=== PATIENT | female | born 1955 | race Caucasian/White ===

== ENCOUNTER → 2021-04-18 | Outpatient (CLI) | payer MEDICARE, OTHER ==
[~2021-04-18] MED LIST: ANORO ELLIPTA1 EACH INH; ASPIRIN CHEWABL81 MG PO; BACLOFEN10 MG PO; CALCIUM 600 +1 EA10 PO; CALCIUM 600 +1 EAC2 PO; CLARITIN10 MG PO; CYCLOBENZAPRINE10 MG PO; ECOTRIN81 MG PO; FENOFIBRATE160 MG PO; FISH OIL 1,0001 EACH PO; FLUOXETINE HCL60 MG PO; FOLIC ACID 1 MG1 MG PO; GLUCOTROL 10 MG10 MG PO; GLUCOTROL5 MG PO; HYDROXYZINE PA100 MG PO; JANUVIA100 MG PO; LIPITOR TAB 2020 MG PO; LORTAB 7.5-3251 EACH PO; METOPROLOL SUCC25 MG PO; MOBIC15 MG PO; NEURONTIN 400400 MG PO; NEURONTIN300 MG PO; NIACIN ER500 MG PO; NIASPAN500 MG PO; NITROSTAT 0.40.4 MG SL; NITROSTAT0.4 MG SL; NORCO 5-325 TA1 EACH PO; NORFLEX 100 MG100 MG PO; OMEPRAZOLE40 MG PO; REQUIP0.25 MG PO; ROPINIROLE HCL2 MG PO; SEROQUEL300 MG PO; SEROQUEL400 MG PO; SYNTHROID25 MCG PO; TOPAMAX25 MG PO; TRAZODONE HCL150 MG PO; VENTOLIN HFA 66.7 GM INH; VITAMIN D; VITAMIN D21250 MCG PO; Voltaren Gel 1 % TOP; vitamin d PO
== END ==
LOC: CT 02-13 10:30
DX: R91.1 Solitary pulmonary nodule (principal)
CPT/HCPCS: 36415; 82565; Q9963; Q9967

== ENCOUNTER 2021-07-11 18:58 | Emergency (ER) | payer MEDICARE, OTHER ==
[~2021-07-11] VITALS: Ht 162.6 cm; Wt 65.8 kg
[2021-07-11 20:33] LABS: RED BLOOD COUNT 5.33 M/UL (4.00-5.10); WHITE BLOOD COUNT 5.3 K/UL (4.5-11.0)
[2021-07-11 20:50] LABS: BUN/CREATININE RATIO 24 (0-10)
== END 2021-07-12 00:59 | disposition home or self-care (01) ==
LOC: ER1 18:58
PROVIDERS: Physician Assistant
DX: Z23 Encounter for immunization (principal); U07.1 COVID-19; E11.9 Type 2 diabetes mellitus without complications; I25.10 Atherosclerotic heart disease of native coronary artery without angina pectoris; I25.2 Old myocardial infarction; F17.210 Nicotine dependence, cigarettes, uncomplicated
CPT/HCPCS: 71045; 80053; 82550; 82553; 83874; 83880; 84484; 85025; 93005; 99284; M0243; U0002